=== PATIENT | male | born 1940 | race Caucasian/White ===

== ENCOUNTER 2020-10-11 13:56 | Outpatient (CLI) | payer MEDICARE, SELFPAY ==
--- NOTE | ~2020-10-11 | XR_ITS ---
EXAMINATION: XR abdomen/kub 1V EXAM DATE: 10/11/2020 16:15 INDICATION: Gross hematuria. TECHNIQUE: Frontal projection of the upper abdomen, frontal projection lower abdomen/pelvis for inter pretation. Correlation was made with CT abdomen pelvis from same date. FINDINGS: There is expected amount of colonic stool and gas. No small bowel dilation, nonobstructiv e bowel gas pattern. There are no suspicious calcifications identified. There is no organomegaly suspected. Mild to moderate upper lumbar dextroscoliosis. IMPRESSION: Unremarkable abdomen x-ray exam. Reviewed, dictated and finalized at location A.
--- NOTE | ~2020-10-11 | CT_ITS ---
EXAMINATION: CT abdomen pelvis wo/w con DATE: 10/11/2020 15:02 INDICATION: Gross hematuria TECHNIQUE: Computed tomography (CT) of the abdomen and pelvis was performed without and subsequently with 130 cc Omnipaque 350 intravenous contrast. Automated exposure control and iterative reconstructi on technique were employed. Exam dose: 2020.28 mGy-cm total exam DLP. COMPARISON: 10/11/2020 KUB 03/16/[address] abdomen pelvis FINDINGS: Prominent emphysematous changes are noted. There is no consolidation in the lower lung zone s. Heart size is within normal range. No pericardial or pleural effusion. The liver, gallbladder, bile ducts, spleen, pancreas and pancreatic duct are unremarkable. Normal morphology of the adrenal glands. 7.5 mm upper pole left renal cyst. 6 mm lower pole right renal cyst. Pinpoint subtle nonobstructing lower pole left renal calculus. No ureteral calculus or hydroureterone phrosis. There is severe prostate enlargement, prominently impressing the base of the urinary bladder. There i s moderate diffuse bladder wall thickening likely due to prostate enlargement/bladder outlet obstruct ion. Prostate cancer is not excluded. Abdominal aortic calcification, without aneurysm. No intraperitoneal or retroperitoneal or pelvic mas s lesion or lymphadenopathy is evident. The appendix is not visualized. No bowel obstruction, bowel wall thickening, pneumatosis or intraperitoneal free air. Diffuse osteopenia. No suspicious osteolytic or osteoblastic lesions. Degenerative change at the lumbar and lumbosacral apophyseal joints with associated grade 1 anterolis thesis at L4-5 IMPRESSION: Severe prostate enlargement; prostate cancer is not excluded. Moderate bladder wall thickening secondary to bladder outlet obstruction due to prostate enlargement Pinpoint nonobstructing lower pole left renal calculus Bilateral small renal cyst Emphysema Reviewed, dictated and finalized at Location A. Reviewed, dictated and finalized at location B.
[2020-10-11 14:39] LABS: Estimated Glomerular Filt Rate > 60
== END 2020-10-11 13:57 | disposition home or self-care (01) ==
PROVIDERS: PCP Internal Medicine; Visit Provider Urology
DX: R31.0 Gross hematuria (principal); N40.0 Benign prostatic hyperplasia without lower urinary tract symptoms; R93.41 Abnormal radiologic findings on diagnostic imaging of renal pelvis, ureter, or bladder; N20.0 Calculus of kidney; N28.1 Cyst of kidney, acquired; J43.9 Emphysema, unspecified
CPT/HCPCS: 74018; 74178; Q9967

== ENCOUNTER 2021-03-18 09:11 | Outpatient (CLI) | payer MEDICARE, SELFPAY ==
--- NOTE | ~2021-03-18 | XR_ITS ---
EXAMINATION: XR foot LT min 3V DATE: 03/18/2021 10:10 INDICATION: Inflammatory arthritis TECHNIQUE: 1. Dorsoplantar, two oblique and lateral views of the left foot were obtained. 2. Dorsoplantar, two oblique and lateral views of the right foot were obtained. COMPARISON: None. FINDINGS: Bilateral hallux valgus, moderate on the left and mild on the right. Bilateral bunions with hypertrop hic changes at the medial aspect of the heads of the first metatarsals. No fracture at either foot. P olyarticular osteoarthritis, mild to moderate severity at the bilateral first metatarsophalangeal rosa nts and minimal to mild at several of the bilateral tarsometatarsal, interphalangeal and remaining me tatarsophalangeal joints joints. No erosions to suggest inflammatory arthritis. Moderate-sized bilate ral Achilles and plantar calcaneal spurs. Soft tissues are unremarkable. IMPRESSION: 1. Bilateral hallux valgus, mild on the right and moderate on the left with associated bunions. 2. 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 Reviewed, dictated and finalized at location A. IMPRESSION: 1. Bilateral hallux valgus, mild on the right and moderate on the left with ass ociated bunions. 2. 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
--- NOTE | ~2021-03-18 | XR_ITS ---
EXAMINATION: XR hand LT 2V, XR hand RT 2V DATE: 03/18/2021 10:10 INDICATION: Inflammatory arthritis TECHNIQUE: 1. Posteroanterior and lateral views of the left hand were obtained. 2. Posteroanterior and lateral views of the right hand were obtained. COMPARISON: None. FINDINGS: Left hand: Diffuse osteopenia. There has been prior amputation of the left fifth digit at the level of the base of the middle phalanx with smooth corticated osteotomy margin. No acute fracture. 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 No fracture. Polyarticular osteoart hritis characterized by nonuniform joint space narrowing and/or marginal osteophytes, severe at the f irst carpometacarpal joint, moderate severity at the distal radioulnar and wrist joints and mild at t he midcarpal, triscaphe and multiple metacarpophalangeal and interphalangeal joints. No erosions to s uggest an inflammatory arthritis. Mild chondrocalcinosis in the region of the right triangular fiber cartilage complex. Tiny metallic foreign body in the soft tissues dorsal to the head of the left firs t proximal phalanx. Right hand: Diffuse osteopenia. Old fracture deformities at the fourth and fifth metatarsals. No acute fracture. Mild radial angulation at the second distal interphalangeal joint. There is widening of the scapholun ate interval but without associated dorsal intercalated segment instability (DISI). Additional polyar ticular osteoarthritis, severe at the second distal interphalangeal and first carpal metacarpal joint s, moderate to severe at the wrist and joint, moderate at the distal radioulnar and fourth and fifth distal interphalangeal joints and mild at the triscaphe and remaining metacarpophalangeal and interph alangeal joints. No erosions to suggest an inflammatory arthritis. IMPRESSION: 1. Polyarticular osteoarthritis at the bilateral hands and wrists, moderate to severe at multiple rosa nts as detailed above. No erosions to suggest inflammatory arthritis. 2. 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 3. 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 Reviewed, dictated and finalized at location A. IMPRESSION: 1. Polyarticular osteoarthritis at the bilateral hands and wrists, moderate to severe at multiple joints as detailed above. No erosions to suggest inflammator y arthritis. 2. Findings the bilateral scapholunate intervals suggesting scapholunate ligame nt insufficiency with dorsal intercalated segment instability (DISI) at the lef t carpus. 3. 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
--- NOTE | ~2021-03-18 | XR_ITS ---
EXAMINATION: XR knee LT min 4V DATE: 03/18/2021 10:10 INDICATION: Inflammatory arthritis with nontraumatic bilateral knee pain TECHNIQUE: 1. Weight bearing anteroposterior and Cross, sunrise, and flexed lateral views of the right knee were obtained. 2. Weight bearing anteroposterior and Cross, sunrise, and flexed lateral views of the left knee w ere obtained. COMPARISON: None. FINDINGS: Alignment is normal at both knees. No fracture. Mild joint space narrowing at the medial and patello femoral compartments of the left knee. Mild joint space narrowing the medial compartment of the right knee and moderate joint space narrowing at the lateral side of the right patellofemoral compartment. Moderate-sized enthesophytes at the proximal and distal poles of both the left and right patellae an d small enthesophytes at the bilateral anterior tibial tuberosities. No joint effusion/layering lipoh emarthrosis on either the left or right. Atherosclerotic calcifications along the arteries of the kevin ateral distal thighs and proximal calves. Soft tissues are otherwise unremarkable. IMPRESSION: 1. Osteoarthritis of both knees, mild in the left patellofemoral and bilateral medial compartments an d moderate severity at the right patellofemoral compartment. Reviewed, dictated and finalized at location A. IMPRESSION: 1. Osteoarthritis of both knees, mild in the left patellofemoral and bilateral medial compartments and moderate severity at the right patellofemoral compartme nt.
--- NOTE | ~2021-03-18 | XR_ITS ---
EXAMINATION: XR hip BI wo pelvis DATE: 03/18/2021 10:10 INDICATION: Inflammatory arthritis TECHNIQUE: Anteroposterior and frog-leg lateral views of the left hip and anteroposterior and frog-le g lateral views of the right hip were obtained. COMPARISON: None. FINDINGS: Bone alignment is normal. No fracture or suspected avascular necrosis. Mild bilateral hip and sacroil iac osteoarthritis characterized by mild nonuniform joint space narrowing and tiny marginal osteophyt es. No erosions to suggest inflammatory arthritis. Scattered atherosclerotic calcifications in the pe lvis and proximal thighs. IMPRESSION: 1. Mild bilateral hip and sacroiliac osteoarthritis. Reviewed, dictated and finalized at location A.
--- NOTE | ~2021-03-18 | XR_ITS ---
EXAMINATION: XR knee LT min 4V DATE: 03/18/2021 10:10 INDICATION: Inflammatory arthritis with nontraumatic bilateral knee pain TECHNIQUE: 1. Weight bearing anteroposterior and Cross, sunrise, and flexed lateral views of the right knee were obtained. 2. Weight bearing anteroposterior and Cross, sunrise, and flexed lateral views of the left knee w ere obtained. COMPARISON: None. FINDINGS: Alignment is normal at both knees. No fracture. Mild joint space narrowing at the medial and patellof emoral compartments of the left knee. Mild joint space narrowing the medial compartment of the right knee and moderate joint space narrowing at the lateral side of the right patellofemoral compartment. Moderate-sized enthesophytes at the proximal and distal poles of both the left and right patellae and small enthesophytes at the bilateral anterior tibial tuberosities. No joint effusion/layering lipohe marthrosis on either the left or right. Atherosclerotic calcifications along the arteries of the bila teral distal thighs and proximal calves. Soft tissues are otherwise unremarkable. IMPRESSION: 1. Osteoarthritis of both knees, mild in the left patellofemoral and bilateral medial compartments an d moderate severity at the right patellofemoral compartment. Reviewed, dictated and finalized at location A. IMPRESSION: 1. Osteoarthritis of both knees, mild in the left patellofemoral and bilateral medial compartments and moderate severity at the right patellofemoral compartme nt.
[2021-03-18 15:10] LABS: Basophils Absolute Auto 0.1 K/mm3 (0.0-0.1); Basophils Percent Auto 1.3 % (0.2-1.2); Eosinophils Absolute Auto 0.3 K/mm3 (0-0.3); Eosinophils Percent Auto 3.6 % (0-4.4); Hematocrit 42.2 % (42.0-52.0); Hemoglobin 14.5 g/dL (14.0-18.0); Immature Granulocyte Absolute 0.03 K/mm3 (0.00-0.031); Immature Granulocyte Percent A 0.4 % (0-0.5); Lymphocytes Absolute Auto 1.75 K/mm3 (0.9-3.2); Lymphocytes Percent Auto 22.4 % (18.3-44.2); Mean Corpuscular HGB Conc 34.4 g/dl (32-36); Mean Corpuscular Hemoglobin 32.9 pg (26-34); Mean Corpuscular Volume 95.7 fl (80-100); Monocytes Absolute Auto 0.8 K/mm3 (0.1-0.6); Monocytes Percent Auto 9.9 % (2.6-8.5); Neutrophils Absolute Auto 4.9 K/mm3 (1.3-6.7); Neutrophils Percent Auto 62.4 % (45.5-73.1); Platelet Count Result 202 k/mm3 (150-375); Red Blood Count 4.41 M/mm3 (4.6-6.20); Red Cell Distribution Width 12.4 % (11.5-14.5); White Blood Count 7.8 K/mm3 (4.5-10.0)
[2021-03-18 15:13] LABS: Add Urine Microscopic? YES; Appearance Urine Cloudy (Clear); Bilirubin Urine Negative (Negative); Blood Urine Negative (Negative); Color Urine Yellow (Yellow); Glucose Urine UA Negative (Negative); Ketones Urine Negative (Negative); Leukocyte Esterase Ur Negative LEU/UL (Negative); Nitrate Urine Negative (Negative); Protein Urine Negative (Negative); RBC Urine 0-2 /hpf (0-2); Specific Grav Ur 1.016 (1.001-1.035); Urobilinogen Urine Negative mg/dL (<2.0); WBC Urine 0-3 /hpf
[2021-03-18 15:24] LABS: Alanine Aminotransferase 26 U/L (4-50); Albumin Level 4.6 g/dL (3.5-5.1); Alkaline Phosphatase 102 U/L (38-126); Anion Gap 10 mmol/L (8-16); Aspartate Amino Transferase 33 U/L (17-59); Bilirubin,Total 1.9 mg/dL (0.2-1.3); Blood Urea Nitrogen 13 mg/dL (9-20); CRP < 0.5 mg/dL (<1.0); Calcium 10.2 mg/dL (8.4-10.2); Carbon Dioxide 27 mmol/L (22-30); Chloride 101 mmol/L (98-107); Estimated Glomerular Filt Rate > 60; Glucose 97 mg/dL (65-110); Potassium 4.1 mmol/L (3.4-5.0); Sodium 138 mmol/L (137-145)
[2021-03-18 15:35] LABS: Rheumatoid Factor < 8.6 IU/ML (<12)
[2021-03-18 16:07] LABS: Erythrocyte Sedimentation Rate 18 mm/hr (0-20)
== END 2021-03-18 09:12 | disposition home or self-care (01) ==
PROVIDERS: PCP Internal Medicine; Visit Provider Internal Medicine
DX: M15.9 Polyosteoarthritis, unspecified (principal); M20.12 Hallux valgus (acquired), left foot; M20.11 Hallux valgus (acquired), right foot; M21.612 Bunion of left foot; M21.611 Bunion of right foot; Z89.022 Acquired absence of left finger(s)
CPT/HCPCS: 36415; 73120; 73521; 73564; 73630; 80053; 81001; 85025; 85652; 86038; 86140; 86430

== ENCOUNTER 2023-03-07 10:33 | Outpatient (CLI) | payer MEDICARE, SELFPAY ==
--- NOTE | ~2023-03-07 | CT_ITS ---
CT Scan of the Chest without Contrast: Clinical Indication: COPD Technique: Contiguous sections were acquired throughout the chest without intravenous contrast. Dose reduction technique was used on this scan by utilizing automated exposure control and iterative recon struction technique. The dose-length product (DLP) was 115.63 mGy-cm. Findings: There is no evidence of any significant mediastinal, hilar or axillary lymphadenopathy. The mediastin al soft tissues appear normal. There is no evidence of pleural or pericardial effusion. There is moderate to advanced emphysema. No suspicious pulmonary nodule seen. Images through the upper abdomen reveal no abnormalities. Impression: Moderate to advanced emphysema. Reviewed, dictated and finalized at location . Impression: Moderate to advanced emphysema.
== END 2023-03-07 10:34 | disposition home or self-care (01) ==
PROVIDERS: PCP Internal Medicine; Visit Provider Physician Assistant
DX: J44.9 Chronic obstructive pulmonary disease, unspecified (principal); J43.9 Emphysema, unspecified; Z87.891 Personal history of nicotine dependence; Z77.090 Contact with and (suspected) exposure to asbestos
CPT/HCPCS: 71250

== ENCOUNTER 2023-03-12 08:33 | Outpatient (CLI) | payer MEDICARE, SELFPAY ==
--- NOTE | 2023-03-16 15:45 | WPDSLEEPSTUD ---
Sleep Study Date of Study: 03/12/23 Ordering Provider: CADEN Flores Interpreting Physician: Haleigh Elias DO Sleep Study Type: Polysomnogram Height: 1.75 m Weight: 74.843 kg Body Mass Index: 24.3 Neck Circumference (inches): 14.25 Eldred: 15 Reason for Sleep Study Multiple nighttime awakenings Sleep History The patient is an 82-year-old male with COPD, carotid artery stenosis, benign prostatic hyperplasia and history of tobacco use that had a sleep study ordered by the pulmonary group for evaluation of sleep apnea. The patient denies awakening from sleep short of breath. He denies awakening at night with heartburn, belching or cough. He denies snoring loud enough others complain. He denies having trouble sleeping when he has a cold. He denies waking up gasping for air throughout the night. He denies having breathing problems at night observed by himself or others. He denies sweating excessively at night. He denies having heart palpitations or irregular heartbeats during the night. He occasionally falls asleep during the day but rarely falls asleep while driving. he denies sleep paralysis, cataplexy and hypnagogic / hypnopompic hallucinations. He denies having trouble at school or work due to sleepiness. He denies feeling afraid of going to sleep. He denies having nightmares. He rarely remembers his dreams. He constantly has thoughts racing through his mind. He rarely feels sad, depressed or anxious. He denies having muscular tension. He denies noticing parts of his body jerk. He denies kicking during the night. He denies having crawling and aching feelings in his legs per rarely has leg pain during the night. He denies grinding his teeth during sleep and denies awakening with morning jaw pain. He is occasionally bothered by pain during the day but rarely awakened by pain during the night. He rarely wakes up feeling stiff in the morning. He denies waking up with sore or achy muscles. He occasionally wakes up with pain in neck, spine or other joints. He goes to bed at 10:00 p.m. on both weekdays and weekends. It takes him 10-15 minutes to fall asleep. He wakes up 5-10 times throughout the night to adjust his position and a can take anywhere from 5 minutes to 2 hours to fall asleep. He wakes up between 3-5 a.m. on both weekdays and weekends. He typically gets 4-6 hours of sleep per night. He will stay in bed anymore from 15 minutes up to 2 hours after waking up in the morning. He currently lives with his . He denies consuming any caffeinated beverages within 2 hours of bedtime. He denies engaging in physical exercise before bedtime. He will occasionally read and watch television before falling asleep. He will take naps in afternoon or the evening and they are refreshing. He consumes 2 cups of caffeinated beverage per day. He will have 0.5 alcoholic beverages per day. He quit smoking cigarettes 5 years ago. He denies recreational drug use. [facility] Past Medical History Medical History Generalized osteoarthritis of multiple sites Inflammatory arthritis (~2020) Social History Social History Smoking status: Former smoker Medications Home Medications Medication Instructions Recorded Confirmed Type ascorbic acid (vitamin C) 1,000 mg 1 g PO DAILY 08/23/21 02/20/23 History tablet atorvastatin 40 mg tablet 40 mg PO DAILY 08/23/21 02/20/23 History calcium carbonate 600 mg calcium 600 mg PO DAILY 08/23/21 02/20/23 History (1,500 mg) tablet (Calcium) multivitamin 1 tablet PO DAILY 08/23/21 02/20/23 History omega 2-wrg-xpx-fish oil 1,200 mg cap PO 08/23/21 02/20/23 History (144 mg-216 mg) capsule (Fish Oil) psyllium husk 0.4 gram capsule 0.4 g PO DAILY 08/23/21 02/20/23 History rivaroxaban 2.5 mg tablet (Xarelto) 2.5 mg PO BID 08/23/21 02/20/23 History Sleep Proce
[2023-03-16 15:55] VITALS: BMI 24.3
== END 2023-03-13 06:28 | disposition home or self-care (01) ==
LOC: ANHCSM 08:35
PROVIDERS: PCP Internal Medicine; Visit Provider Physician Assistant
DX: I48.92 Unspecified atrial flutter (principal); G47.61 Periodic limb movement disorder; G47.33 Obstructive sleep apnea (adult) (pediatric)
CPT/HCPCS: 95810

== ENCOUNTER 2023-03-14 10:01 | Outpatient (CLI) | payer MEDICARE, SELFPAY ==
--- NOTE | 2023-03-14 16:21 | WPDSIXMINUTE ---
Six Minute Walk Procedure Procedure Performed Pulmonary Stress Test (6 min walk) Six Minute Walk Six Minute Walk: This is a 6 minute walk test. The test was performed and interpreted in accordance with the 2014 ERS/ATS task force guidelines. Findings: The patient's resting room air oxygen saturation measured by pulse oximetry was 95% and heart rate was 90 bpm. Patient ambulated for 305 meters and oxygen saturation remained 90 to 94%. Heart rate at the end of the study was 91 bpm. The patient did not qualify for supplemental oxygen at rest or with ambulation. There are no prior studies for comparison.
--- NOTE | 2023-03-14 16:22 | WPDPFTINT ---
PFT Procedure Performed PFT Procedure Performed Spirometry with Pre/Post Bronchodilator Plethysmography (Lung Vol) Diffusing Cap (DLCO) Flow Vol Loop PFT Interpretation This is a pulmonary function test with pre and post-bronchodilator spirometry, plethysmography and diffusing capacity. The test was performed and results interpreted in accordance with the 2019 and 2005 ATS/ERS Task Force guidelines respectively using the Global Lung Function Initiative-2012 reference equations. Patient demonstrated good effort and cooperation. Reproducibility criteria were met. The quality of the pre bronchodilator spirometry maneuver was Grade A and post bronchodilator spirometry maneuver was Grade A. Findings: Spirometry: The contour the inspiratory and expiratory flow tracing are normal. The pre bronchodilator FVC is 3.43 L, 96% predicted. The pre bronchodilator FEV1 is 2.63 L, 99% predicted. The pre bronchodilator FEV1: FVC ratio 77%. The post bronchodilator FVC is 3.50 L, representing a 2% increase. The post bronchodilator FEV1 is 2.69 L, representing a 2% increase. The post bronchodilator FEV1: FVC ratio 77%. Plethysmography: The total lung capacity is 4.55 L, 68% predicted. The functional residual capacity is 2.34 L, 65% predicted. The residual volume is 1.12 L, 43% predicted. Diffusing capacity: The diffusing capacity unadjusted for hemoglobin and carboxyhemoglobin is 11.3, 50% predicted. The diffusing capacity adjusted for alveolar volume is 2.34, 64% predicted. Impression: There is a mild restrictive ventilatory abnormality with a normal FEV1. The spirometry is normal without evidence of an obstructive abnormality. There is no significant improvement after inhaling a single dose of albuterol. The diffusing capacity unadjusted for hemoglobin and carboxyhemoglobin is moderately decreased and remains mildly decreased when adjusted for alveolar volume. There are no prior studies for comparison
== END 2023-03-14 10:02 | disposition home or self-care (01) ==
PROVIDERS: PCP Internal Medicine; Visit Provider Physician Assistant
DX: J44.9 Chronic obstructive pulmonary disease, unspecified (principal); R94.2 Abnormal results of pulmonary function studies
CPT/HCPCS: 94060; 94618; 94726; 94729

== ENCOUNTER 2023-11-03 11:55 | Emergency (ER) | payer MEDICARE, SELFPAY ==
--- NOTE | 2023-11-03 12:02 | ED.NAVMDI ---
HPI - Nausea/Vomiting/Diarrhea General Chief complaint: Nausea/Vomiting/Diarrhea Stated complaint: diarrhea Time Seen by Provider: 11/03/23 12:02 History of Present Illness HPI Narrative: Patient is an 83-year-old male with history of IBS, carotid stenosis, here with diarrhea. Patient states that over the last 2 weeks he has had persistently worsening diarrhea. He states that he has 3-4 bowel movements daily. He notes that they are liquid in nature and occasionally dark and tarry. He denies any recent antibiotic use. He notes that he does have some associated abdominal discomfort which she describes as diffuse cramping and subsides after a bowel movement. Currently denies any abdominal pain. He notes that he does have a history of occasional diarrhea with IBS however this time it has persisted but longer than it traditionally does. He is progressively felt weaker and weaker per family at bedside over the last 2 weeks. They did contact his primary care doctor who referred him to Gastroenterology. They called the office and they cannot get in for another 2 weeks. Given his continued symptoms they did not feel like he could wait until this time to see them so he came into the emergency department for evaluation. He denies any lightheadedness. Denies any chest pain or shortness of breath. His last colonoscopy was approximately 13 years ago. They reportedly told him he no longer needed to come back to get them performed due to his age. He has attempted several [id number]-rzl-[id number] medications including Metamucil daily and they have not helped his diarrhea. Related Data Home Medications Medication Instructions Recorded Confirmed ascorbic acid (vitamin C) 1,000 mg 1 g PO DAILY 08/23/21 06/27/23 tablet atorvastatin 40 mg tablet 40 mg PO DAILY 08/23/21 06/27/23 calcium carbonate (Calcium 600) 600 mg PO DAILY 08/23/21 06/27/23 multivitamin 1 tablet PO DAILY 08/23/21 06/27/23 omega 6-sej-fua-fish oil 1,200 mg cap PO 08/23/21 06/27/23 (144 mg-216 mg) capsule (Fish Oil) psyllium husk 0.4 gram capsule 0.4 g PO DAILY 08/23/21 06/27/23 rivaroxaban 2.5 mg tablet (Xarelto) 2.5 mg PO BID 08/23/21 06/27/23 Allergies Allergy/AdvReac Type Severity Reaction Status Date / Time No Known Allergies Allergy Verified 11/03/23 12:09 Review of Systems Review of Systems: All systems reviewed & are unremarkable except as noted in HPI and below PMFSH Past Medical History Medical History Generalized osteoarthritis of multiple sites Inflammatory arthritis (~2020) Social History Social History Smoking status: Former smoker Exam Narrative: GENERAL: Well-appearing, well-nourished, and in no acute distress. HEAD: Normocephalic, atraumatic. EYES: PERRLA and EOMI. ENT: Nares clear. Mucous membranes moist. NECK: Supple. CHEST: Clear to auscultation. No respiratory distress. HEART: Regular rate and rhythm. Normal peripheral pulses. ABDOMEN: Soft, nontender, nondistended. EXTREMITIES: Normal range of motion. No edema. SKIN: Warm, dry, no rash. NEURO: No focal deficits. Alert and oriented x3. PSYCH: Normal mood and affect. Course Course Emergency Course: Chart review performed. Patient here with diarrhea x2 weeks. Triage vitals normal. He appears to have some specialist visits in our system, no PCP visit or GI visit. Their notes state history of emphysema and COPD, carotid stenosis, BPH. Patient seen evaluated, no acute distress. Here with diarrhea, has been present for the last 2 weeks. Basic lab work ordered, IV fluids ordered. He does already have a pending referral to Gastroenterology. Will defer imaging at this time given normal abdominal exam however should he have gross abnormalities on lab work will discuss possible CT scan. Protonix ordered in addition to IV fluids. Patient agreeable to workup and plan. Lab work reviewed, Hollie
[2023-11-03 12:06] VITALS: BP 133/70; PULSE 63; RESP 17; TEMP 36.4; O2SAT 95
[2023-11-03 12:28] LABS: Basophils Absolute Auto 0.1 K/mm3 (0.0-0.1); Basophils Percent Auto 0.8 % (0.2-1.2); Eosinophils Absolute Auto 0.1 K/mm3 (0-0.3); Eosinophils Percent Auto 1.4 % (0-4.4); Hematocrit 39.9 % (42.0-52.0); Hemoglobin 13.6 g/dL (14.0-18.0); Immature Granulocyte Absolute 0.02 K/mm3 (0.00-0.031); Immature Granulocyte Percent A 0.3 % (0-0.5); Lymphocytes Absolute Auto 1.21 K/mm3 (0.9-3.2); Lymphocytes Percent Auto 16.7 % (18.3-44.2); Mean Corpuscular HGB Conc 34.1 g/dl (32-36); Mean Corpuscular Hemoglobin 31.9 pg (26-34); Mean Corpuscular Volume 93.7 fl (80-100); Mean Platelet Volume 10.1 fl (7.4-10.4); Monocytes Absolute Auto 0.6 K/mm3 (0.1-0.6); Monocytes Percent Auto 8.1 % (2.6-8.5); Neutrophils Absolute Auto 5.3 K/mm3 (1.3-6.7); Neutrophils Percent Auto 72.7 % (45.5-73.1); Platelet Count Result 171 k/mm3 (150-375); Red Blood Count 4.26 M/mm3 (4.6-6.20); Red Cell Distribution Width 11.9 % (11.5-14.5); White Blood Count 7.3 K/mm3 (4.5-10.0)
[2023-11-03 12:40] LABS: INR 1.6; Partial Thromboplastin Time 39.8 Seconds (22.3-36.8); Prothrombin Time 19.6 Seconds (11.1-14.7)
[2023-11-03 12:41] LABS: Alanine Aminotransferase 20 U/L (6-50); Albumin Level 4.1 g/dL (3.5-5.1); Alkaline Phosphatase 99 U/L (38-126); Anion Gap 7 mmol/L (4-12); Aspartate Amino Transferase 25 U/L (17-59); Bilirubin,Total 1.7 mg/dL (0.2-1.3); Blood Urea Nitrogen 11 mg/dL (9-20); Calcium 9.3 mg/dL (8.4-10.2); Carbon Dioxide 26 mmol/L (22-30); Chloride 102 mmol/L (98-107); Estimated CRCL calculation 62 ml/min; Estimated Glomerular Filt Rate > 60; Glucose 133 mg/dL (65-110); Potassium 3.5 mmol/L (3.4-5.0); Sodium 135 mmol/L (137-145)
[2023-11-03 12:47] LABS: Lipase 69 U/L (23-300); Magnesium 1.7 mg/dL (1.6-2.3)
[2023-11-03] MEDS: LACTATED RINGERS 1,000 ML 999 ML IV CONT (12:51)
[2023-11-03] MEDS: PANTOPRAZOLE SODIUM IV 40 MG VIAL IV PUSH (12:51)
[2023-11-03 13:46] LABS: Appearance Urine Clear (Clear); Bilirubin Urine Negative (Negative); Blood Urine Negative (Negative); Color Urine Yellow (Yellow); Glucose Urine UA Negative (Negative); Ketones Urine Negative (Negative); Leukocyte Esterase Ur Negative LEU/UL (Negative); Nitrate Urine Negative (Negative); Protein Urine Negative (Negative); Urobilinogen Urine 0.2 mg/dL (<2.0); pH Urine 6.5 (5.0-9.0)
[2023-11-03 13:47] LABS: Add Urine Microscopic? NO
[2023-11-03 14:44] LABS: Toxigenic C. Diff NEGATIVE (NEGATIVE)
[2023-11-03 14:55] LABS: Lactic Acid Reflex 0.8 mmol/L (0.7-2.0)
[2023-11-03 15:04] VITALS: BP 123/69; PULSE 63; RESP 16; O2SAT 95
== END 2023-11-03 16:05 | disposition home or self-care (01) ==
PROVIDERS: Emergency Provider Student in an Organized Health Care Education/Training Program; PCP Internal Medicine
DX: R19.7 Diarrhea, unspecified (principal); I65.29 Occlusion and stenosis of unspecified carotid artery; J44.9 Chronic obstructive pulmonary disease, unspecified; J43.9 Emphysema, unspecified; N40.0 Benign prostatic hyperplasia without lower urinary tract symptoms; K58.9 Irritable bowel syndrome, unspecified; M19.90 Unspecified osteoarthritis, unspecified site; Z87.891 Personal history of nicotine dependence; Z79.01 Long term (current) use of anticoagulants
CPT/HCPCS: 36415; 80053; 81003; 83605; 83690; 83735; 85025; 85610; 85730; 86850; 86900; 86901; 87493; 96361; 96374; 99284; C9113; J7120

== ENCOUNTER 2024-02-19 01:25 | Day surgery (SDC) | payer MEDICARE, SELFPAY ==
[2024-02-05 14:00] VITALS: BMI 25.1
--- NOTE | 2024-02-06 16:20 | PC.NURSE ---
Spoke with patient regarding medication Xarelto. Pt. verbalizes understanding that the last dose of Xarelto is to be taken on 02/15/2021 and the Endoscopist will instruct them when to restart after the procedure.
[2024-02-19 07:20] VITALS: BP 118/73; PULSE 91; RESP 18; TEMP 36.4; O2SAT 96
[2024-02-19] MEDS: LACTATED RINGERS 1,000 ML 150 ML IV CONT (07:32)
--- NOTE | 2024-02-19 07:50 | P.PNAN_ITS ---
Anes - Initial Pre Proc Eval Procedure: Operation Date: 02/19/24 08:30 Proposed Procedures p Colonoscopy - Baudilio Castillo MD Date/Time: 02/19/24 07:50 Surgeon: Baudilio Castillo MD Pre Op Diagnosis: Non-infective gastroenteritis/colitis, unspecified Patient Data Age: 83 Gender: M Height: 1.75 m Weight: 76.5 kg Last Vital Signs Temp 97.6 F 02/19/24 07:20 Pulse 91 02/19/24 07:20 Resp 18 02/19/24 07:20 BP 118/73 02/19/24 07:20 Pulse Ox 96 02/19/24 07:20 O2 Del Method Room Air 02/19/24 07:20 Allergies Allergy/AdvReac Type Severity Reaction Status Date / Time No Known Allergies Allergy Verified 02/19/24 07:18 Home Medications Medication Instructions Recorded Confirmed Type ascorbic acid (vitamin C) 1,000 mg 1 g PO DAILY 08/23/21 02/19/24 History tablet atorvastatin 40 mg tablet 40 mg PO DAILY 08/23/21 02/19/24 History calcium carbonate (Calcium 600) 600 mg PO DAILY 08/23/21 02/19/24 History multivitamin 1 tablet PO DAILY 08/23/21 02/19/24 History omega 9-ilm-cqf-fish oil 1,200 mg 1,200 cap PO DAILY 08/23/21 02/19/24 History (144 mg-216 mg) capsule (Fish Oil) psyllium husk 0.4 gram capsule 0.4 g PO DAILY 08/23/21 02/19/24 History rivaroxaban 2.5 mg tablet (Xarelto) 2.5 mg PO BID 08/23/21 02/19/24 History hyoscyamine sulfate 0.125 mg 0.125 mg PO QID PRN dyspepsia #10 11/03/23 02/19/24 Rx tablet (Levsin) tabs Patient hx anesthesia problems: none Family hx anesthesia problems: none Results Review: All pre-operative results and documents have been reviewed as part of the pre- operative evaluation. [facility] Past Medical History Medical History Generalized osteoarthritis of multiple sites Inflammatory arthritis (~2020) Social History Social History Smoking status: Former smoker Tobacco type: cigarettes Alcohol intake: current Drinks per week: 2 Substance use: never Substance use type: does not use Living arrangements: with family Spiritual care concerns: No Anes - Eval Final PreProcedure Day of Procedure 02/19/24 07:50 Patient weight: normal Heart: regular rate and rhythm Lungs: clear to auscultation Airway: Mallampati scale class II Neurological: alert and oriented Last oral intake: >/= 8 hours ASA classification: III Emergent: no Anesthetic plan: proceed Anesthesia type and monitoring: general GIVS and standard monitoring Results Review: All pre-operative results and documents have been reviewed as part of the pre- operative evaluation. Informed Consent: The patient's anesthetic plan and its attendant risks and benefits were discussed with the patient/family/POA. Questions were solicited and answers provided to the satisfaction of the patient/family/POA.
--- NOTE | 2024-02-19 08:10 | PM.HPGS ---
History of Present Illness History of Present Illness Consent: Risks, benefits, and alternatives have been discussed and questions answered. Patient agrees to proceed with procedure. Chief complaint: Non-infective gastroenteritis/colitis, unspecified Narrative: Carole Morel is a 83 year old male with episode of diarrhea that prompted ER visit, now back to his baseline. Last colonoscopy more than 10 years ago Review of Systems Review of Systems: All systems reviewed & are unremarkable except as noted in HPI and below PMFSH Past Medical History Medical History Generalized osteoarthritis of multiple sites Inflammatory arthritis (~2020) Social History Social History Smoking status: Former smoker Tobacco type: cigarettes Alcohol intake: current Drinks per week: 2 Substance use: never Substance use type: does not use Living arrangements: with family Spiritual care concerns: No Meds Home Medications and Allergies Home Medications Medication Instructions Recorded Confirmed Type ascorbic acid (vitamin C) 1,000 mg 1 g PO DAILY 08/23/21 02/19/24 History tablet atorvastatin 40 mg tablet 40 mg PO DAILY 08/23/21 02/19/24 History calcium carbonate (Calcium 600) 600 mg PO DAILY 08/23/21 02/19/24 History multivitamin 1 tablet PO DAILY 08/23/21 02/19/24 History omega 0-ieq-mdu-fish oil 1,200 mg 1,200 cap PO DAILY 08/23/21 02/19/24 History (144 mg-216 mg) capsule (Fish Oil) psyllium husk 0.4 gram capsule 0.4 g PO DAILY 08/23/21 02/19/24 History rivaroxaban 2.5 mg tablet (Xarelto) 2.5 mg PO BID 08/23/21 02/19/24 History hyoscyamine sulfate 0.125 mg 0.125 mg PO QID PRN dyspepsia #10 11/03/23 02/19/24 Rx tablet (Levsin) tabs Allergies Allergy/AdvReac Type Severity Reaction Status Date / Time No Known Allergies Allergy Verified 02/19/24 07:18 Vital Signs Vital Signs - 24 hr 02/19/24 07:20 Temperature 97.6 F Pulse Rate 91 Respiratory Rate 18 Blood Pressure 118/73 Pulse Oximetry 96 Oxygen Delivery Room Air Exam Const: General: comfortable and no acute distress HENMT: Face/Nose/Sinus: Normal nares present Eyes: General: appearance normal, both eyes and all related structures Neck: Neck: no JVD Resp: Auscultation: clear to auscultation bilaterally Cardio: Rate: regular rate Rhythm: regular rhythm GI: Inspection: non-distended GI Palp: Yes Soft to palpation Skin: General skin exam: normal color Neuro: General: gait normal Speech: normal speech Extrem: General: normal to inspection Psych: Mental Status: mental status grossly normal Assessment and Plan Assessment and plan (1) Diarrhea: Qualifiers: Diarrhea type: unspecified type Qualified Code(s): R19.7 - Diarrhea, unspecified Code(s): R19.7 - Diarrhea, unspecified Status: Inactive Assessment and Plan: resolved will do colonoscopy
[2024-02-19 08:33] VITALS: BP 116/72; PULSE 84; RESP 20; O2SAT 95
[2024-02-19 08:43] VITALS: BP 112/71; PULSE 86; RESP 24; O2SAT 97
[2024-02-19 08:53] VITALS: BP 116/78; PULSE 83; RESP 20; O2SAT 98
== END 2024-02-19 09:08 | disposition home or self-care (01) ==
PROVIDERS: PCP Internal Medicine; Referring Provider Internal Medicine; Visit Provider Internal Medicine Gastroenterology
PROC: 0DJD8ZZ Inspection of Lower Intestinal Tract, Via Natural or Artificial Opening Endoscopic (ICD-10-PCS; CPT 45378; principal; 2024-02-19 08:30)
DX: K57.30 Diverticulosis of large intestine without perforation or abscess without bleeding (principal); K64.8 Other hemorrhoids; Z87.891 Personal history of nicotine dependence
CPT/HCPCS: 45378; J2001; J2704; J7120

== ENCOUNTER 2024-12-02 12:39 | Outpatient (CLI) | payer MEDICARE, SELFPAY ==
--- OUTSIDE RECORDS SUMMARY | 2024-12-02 12:44 | XMS_ITS | Continuity of Care Document ---
Author Organization [employer] [facility] Address [address] [place] [address] Phone Care Team Providers Care Anthropologist Physical Name Role Phone Mignon PIETRONiru Unavailable Unavailable Allergies, Adverse Reactions, Alerts Substance Reaction Status Criticality No Known Allergies Active No Inform ation No Known Allergies Active No Inform ation Medications Medication Instructions Dosage Effective Dates (start - stop) Status Comments prednisolone acetate 1 % eye drops,suspension instill 1 drop by ophthalmic route 4 times every day into operative eye for 2 weeks, then 2 times per day for 2 weeks, then stop - Active ketorolac 0.5 % eye drops instill 1 drop in operative eye 4 times every day for 2 weeks, then 2 times per day for 2 weeks, then stop - Active finasteride 5 mg tablet take 1 tablet by oral route every day 5 MG - Active Xarelto 2.5 mg tablet take 1 tablet by oral route 2 times every day 2.5 MG - Active atorvastatin 40 mg tablet take 1 tablet by oral route every day 40 MG - Active Calcium 600 mg calcium (1,500 mg) tablet take 1 capsule by oral route 2 times every day 1 capsule - Active glucosamine sulfate 1,000 mg tablet take 2 tablet by oral route every day 2 tablet - Active Vitamin C 1,000 mg tablet take 1 by oral route every day 1 - Active multivitamin tablet take 1 tablet by oral route every day 1 tablet - Active PSYLLIUM FIBER (unknown strength) take 1 by oral route every day Not Available - Active Fish Oil 1,200 mg (144 mg-216 mg) capsule take 1 capsule by oral route every day 1 capsule - Active multivitamin with iron tablet take 1 tablet by oral route every day with food - Active Calcium 600 mg calcium (1,500 mg) tablet take 1 capsule by oral route 2 times every day 1 capsule - Active glucosamine sulfate 1,000 mg tablet take 2 tablets daily - Active Vitamin C ER 1,000 mg tablet,extended release once daily - Active Fish Oil Extra Strength ORAL CAPSULE once daily - Active Colox 750 mg capsule once daily - Active finasteride 5 mg tablet take 1 tablet by oral route every day 5 MG - Active Xarelto 2.5 mg tablet take 1 tablet by oral route 2 times every day 2.5 MG - Active atorvastatin 40 mg tablet take 1 tablet by oral route every day 40 MG - Active Procedures Procedure Date No Charge Refraction Post-op Follow-up Visit Post-op Follow-up Visit Post-op Follow-up Visit Remove Cataract, Insert Lens IOLMaster-Professional No Charge Refraction Post-op Follow-up Visit Post-op Follow-up Visit Remove Cataract, Insert Lens IOLMaster-Professional SCODI, Retina No Charge Orbscan No Charge Optomap Fundus Photos IOLMaster-Technical No Charge Refraction Office/outpatient Visit, [facility] Advance Directives Directive Yes / No Effective Date File Name No Information Encounters Encounter Description Practice Location Reason(s) For Visit Diagnoses Date Provider Providers Copied on Encounter [facility], [address], [place], [place], [id number], [place] tel:[phone] SEC Yann WATERMAN Professional 1 mo CE PO (01/04/22) (chief complaint) Post op visit 2 Mignon OD Niru. [address] [facility], [address], [place], [place], [address], [place]. tel:[phone] Michel Haney MD.Wanda Mcgraw MD.Referrin g Provider: Rohit Saba, [address], [place], [address]. tel:[phone] [facility], [address], [place], [place], [address], [place] tel:[phone] SEC [place] Professional 1 week s/p PCIOL (chief complaint) Post op visit 2 Mignon OD Niru. [id number] [place] [address] [facility], [address], [place], [place], [address], [place]. tel:[phone] Michel Haney MD.Wanda Mcgraw MD.Referrin g Provider: Rohit Saba, [address] [facility] [address] [facility] [address], [place], [address]. tel:[phone] [facility], [address], [place], [place], [address], [place] tel:[phone] SEC [place] Professional 1 day s/p PCIOL (chief complaint) Post op visit 2 Mignon OD Niru. [address] [facility], [address], [place], [place], [address], [place]. tel:[phone] Michel Haney MD.Wanda Mcgraw MD.Referrin g Provider: Rohit Saba, [address] [facility], [place], [address]. tel:[phone] [facility], [address] [place] [address] [address], [place], [place], [address], [place] tel:[phone] [facility] No Information 2 Horace Bee. [address] [facility] [facility], [facility] [place], [address], [place]. tel:[phone] Referring Provider: Rohit Saba, [address], [place], [address]. tel:[phone] [facility], [address], [place], [place], [address], tel: SEC Yann WATERMAN Professional No Information 2 Horace Bee. [address] [facility], [facility] [place], [address], [place]. tel:[phone] Referring Provider: Rohit Saba, [address] [facility] [address], [place], [address]. tel:[phone] [facility], [address] [place] [address] [address], [place], [place], [address], tel:[phone] SEC [facility] No Information 2 Horace Bee. [address] [facility], [facility] [place], [address], [place]. tel:[phone] [facility], [address] [place] [address] [address], [place], [place], [address], [place] tel:[phone] SEC Yann WATERMAN Professional Post-Op (chief complaint) Combined forms of age-related cataract, right eyePost op visitVitreous degeneration, left eye 2 Horace Bee. [address] [facility] [place], [address], [place]. tel:[phone] Michel Haney MD.Wanda Mcgraw MD.Referrin g Provider: Rohit Saba, [address] [facility] [address], [place], [address]. tel:[phone] [facility], [address] [place] [address] [address], [place], [place], [address], [place] tel:[phone] SEC Yann WATERMAN Professional 1 day postop (chief complaint) Post op visit 2 Mignon Marrufo. [address] [place] [address] [address], [address], [place], [place], [address], . tel:[phone] Michel Haney MD.Wanda Mcgraw MD.Referrin g Provider: Rohit Saba, [address] [facility], [place], [address]. tel:[phone] [facility], [address] [place] [address] [address], [place], [place], [address], tel:[phone] [facility] No Information 2 Horace Bee. [address] [facility], [place], [address], . tel:[phone] Referring Provider: Rohit Saba, [address], [place], [address]. tel:[phone] [facility], [address] [place] [address] [address], [place], [place], [address], tel:[phone] SEC Yann WATERMAN Professional No Information 2 Horace Bee. [address] [facility], [address] [place], [address], [place]. tel:[phone] Referring Provider: Rohit Saba, [address], [place], [address]. tel:[phone] Office/outpa tient Visit, [facility], [address] [place] [address] [address], [place], [place], [address], tel:[phone] SEC [place] Professional Complete Exam (chief complaint) Combined forms of age-related cataract, right eyeAge-relate d nuclear cataract, left eyeDrusen (degenerative ) of macula, right eye Apr- 2 Horace Bee. [address] [facility], [address] [place], [address], . tel:[phone] Michel Haney MD.Wanda Mcgraw MD.Referrin g Provider: Rohit Saba, [address] [address], [place], [address]. tel:[phone] [facility], [address], [place], [place], [address], tel:[phone] SEC [facility] No Information Apr-0 2 Horace Bee. [address] [address], [facility] [address], [place], [place], [address], [place]. tel:[phone] Specialist: Michel Haney MD, [address], [place], [address]. tel:[phone] alist: [place], [address], [place], [address]. tel:[phone] [facility], [address], [place], [place], [address], [place] tel:[phone] SEC [facility] No Information Aug-0 2 Horace Bee. [address] [address], [facility] [place], [address], [place]. tel:[phone] Family History Family Member Type Diagnosis Age At Onset Problem Family history of Macular de generation Problem Family history of Macular de generation Payers Payer name Insurance type Covered democrat ID Authoriza tion(s) No Information Social History Type Description Quantity Date Captured Comments Alcohol Use Details 3 drinks weekly Caffeine Use Details 2 cups per day Tobacco Use Status Ex-cigarette smoker 022 Smoking Status Former smoker Smoking Tobacco Use Details Cigarette: Age Started: 17, Age Stopped: 77, Years Used 60 Cigarette: 0.5 Packs per day, Pack Year: 30 Sex Male Chief Complaint And Reason For Visit From encounter dated '02/01/2022 08:30'. 1 mo CE PO (01/04/22) (chief complaint). Description: The 81 year old patient presents for evaluation of 1 mo CE PO (01/04/22) in the right eye. Pt reports he finished all CE PO gtts yesterday and isn't currently using any gtts, OU. Pt reports OD is doing fine and VA is better since he had CE. Pt is confused on why he has to pay for MRX (if he wanted it). Both patient and read our refraction paper and they still don't understand why we can't give him a free MRX. Pt refused to sign form for MRX. Reason For Referral Reason For Referral No Information Plan Of Treatment Date Type Action Status Goal Tobacco cessation counseling completed Goal Tobacco cessation counseling completed Goal Tobacco cessation counseling completed Patient Education Cataracts: Care Instruc tions completed History Of Present Illness Encounter Date Complaint History Of Prese nt Illness 1 mo CE PO (01/04/22) The 81 year old patient presents for evaluation of 1 mo CE PO (01/04/22) in the right eye. Pt reports he finished all CE PO gtts yesterday and isn't currently using any gtts, OU. Pt reports OD is doing fine and VA is better since he had CE. Pt is confused on why he has to pay for MRX (if he wanted it). Both patient and read our refraction paper and they still don't understand why we can't give him a free MRX. Pt refused to sign form for MRX. 1 week s/p PCIOL The 81 year old patient presents for evaluation of 1 week s/p PCIOL in the right eye. (01/04/22). Patient states VA seems fine. Patient using p/o gtts as directed 1 day s/p PCIOL The 81 year old patient presents for evaluation of 1 day s/p PCIOL in the right eye. Patient states VA seems blurry better but blurry. Patient instructed to use Pred, Ket, and Vig as well as use of eye shield. Post-Op The 81 year old patient presents for a 2 week post op CE OS. Patient is using Pred and Ketorolac bid OS. Patient states OS is doing good. Patient wishes to proceed with CE OD (90 day rule). Patient is having a hard time reading small print and watching TV. Patient is bothered by glare around lights at night. 1 day postop The 81 year old patient presents for evaluation of 1 day postop in the left eye. Pt. had PC/IOL OS 12/01/2021. Pt using Moxifloxacin qid, PF1% qid, and Ketorolac qid. Pt. states no pain overnight. Pt. does notice colors are much brighter. Complete Exam The 80 year old patient presents for a complete exam ou. Patient c/o hard to see peoples faces from across the street. Patient c/o hard to read small print. Patient is bothered by bright lights. Patient c/o vision ou has been blurry x 1 year. Patient states he sees much better without his glasses. Functional Status Date Functional Assessmen t No Information Instructions Date Instruction Additional Brodyr jean Impression/Plan Impression/Plan Impression/Plan Impression/Plan Impression/Plan Impression/Plan Assessments Type Assessment Date assessment Post op visit Patient Care Teams Name Effective Dates (start - stop) Status Members No Information
--- OUTSIDE RECORDS SUMMARY | 2024-12-02 12:44 | XMS_ITS | Clinical Summary ---
Author Organization [facility] Address [address] [place] [address] Care Team Providers Care Proj Mgr Name Role Phone Black Bravo MD Primary Care Provider [phone] Allergies No known active allergies Medications atorvastatin (LIPITOR) 40 mg tablet Take 40 mg by mouth daily. 02/24/2021 Active Xarelto 2.5 mg Tablet Take 2.5 mg by mouth 2 times daily. 02/24/2021 Active Active Problems No known active problems Family History Medical History Relation Name Comments No Known Problems Father No Known Problems Mother Relation Name Status Comments Father Mother Social History Tobacco Use Types Packs/Day Years Used Date Smoking Tobacco: Former Cigarettes Smokeless Tobacco: Never Alcohol Use Standard Drinks/Week Comments Yes 2 (1 standard drink = 0.6 oz pur e alcohol) Sex and Gender Information Value Date Recorded Sex Assigned at Not on file Legal Sex Male 2:02 PM CDT Gender Identity Not on file Sexual Orientation Not on file Last Filed Vital Signs Vital Sign Reading Time Taken Comments Blood Pressure 114/70 03/28/2021 1:07 PM CDT Pulse - - Temperature - - Respiratory Rate 16 03/28/2021 1:06 PM CDT Oxygen Saturation - - Inhaled Oxygen Concentration - - Weight 81.2 kg (179 lb) 03/28/2021 1:06 PM CDT Height 175.3 cm (5' 9) 03/28/2021 1:06 PM CDT Body Mass Index 26.43 03/28/2021 1:06 PM CDT Plan of Treatment Health Maintenance Due Date Last Done Comments ZOSTER VACCINE (1 of 2) 1990 RSV VACCINE (60+ or ) (1 - 1-dose 75+ series) 11/20/2015 INFLUENZA VACCINE (#1) 2024 1, 03/10/2019, 03/04/2018 DTAP/TDAP/TD VACCINES (2 - T d or Tdap) 01/16/2027 01/16/2017 PNEUMOCOCCAL VACCINE 50+ YEARS Completed 09/17/2018 , 01/16/2017 Insurance [employer] [facility] MCR Care Teams Proj Mgr Relationship Specialty Start Date End Date Black Bravo MD [address] [facility] [facility] [address] [place] [address] PCP - General Internal Medicine 09/01/20
[2024-12-02 13:40] LABS: Alanine Aminotransferase 31 U/L (6-50); Albumin Level 4.5 g/dL (3.5-5.1); Alkaline Phosphatase 78 U/L (38-126); Anion Gap 10 mmol/L (4-12); Aspartate Amino Transferase 39 U/L (17-59); Bilirubin,Total 1.7 mg/dL (0.2-1.3); Blood Urea Nitrogen 20 mg/dL (9-20); Calcium 10.2 mg/dL (8.4-10.2); Carbon Dioxide 30 mmol/L (22-30); Chloride 99 mmol/L (98-107); Estimated Glomerular Filt Rate > 60; Glucose 78 mg/dL (65-110); Potassium 4.3 mmol/L (3.4-5.0); Sodium 139 mmol/L (137-145); Total Protein 7.8 g/dL (6.3-8.2)
[2024-12-02 13:46] LABS: Hematocrit 45.5 % (42.0-52.0); Hemoglobin 14.8 g/dL (14.0-18.0); Immature Granulocyte Percent A 0.2 % (0-0.5); Lymphocytes Absolute Auto 1.66 K/mm3 (0.9-3.2); Mean Corpuscular HGB Conc 32.5 g/dl (32-36); Mean Corpuscular Hemoglobin 31.9 pg (26-34); Mean Corpuscular Volume 98.1 fl (80-100); Nucleated Red Blood Cells Absolute Auto 0.000 K/mm3 (0.0-0.012); Nucleated Red Blood Cells Perc 0.0 % (0.0-0.2); Platelet Count Result 172 k/mm3 (150-375); Red Blood Count 4.64 M/mm3 (4.6-6.20); White Blood Count 8.6 K/mm3 (4.5-10.0)
== END 2024-12-02 12:40 | disposition home or self-care (01) ==
PROVIDERS: PCP Family Medicine; Visit Provider Family Medicine
DX: G47.33 Obstructive sleep apnea (adult) (pediatric) (principal); I48.92 Unspecified atrial flutter; G47.9 Sleep disorder, unspecified; J44.9 Chronic obstructive pulmonary disease, unspecified; M19.90 Unspecified osteoarthritis, unspecified site
CPT/HCPCS: 36415; 80053; 85025